=== PATIENT | female | born 1990 | race Caucasian/White ===

== ENCOUNTER 2016-10-18 13:58 | Emergency (ER) | payer MEDICAID ==
[~2016-10-18] VITALS: Ht 152.4 cm; Wt 40.7 kg
[2016-10-18 14:07] VITALS: BP 111/61
[2016-10-18] MEDS ORDERED: OXYcodone/APAP 5/325MG TABLET ONE (14:38)
[2016-10-18] MEDS ORDERED: OXYcodone/APAP 5/325MG TABLET PO ONE (15:00)
== END 2016-10-18 15:37 | disposition home or self-care (01) ==
LOC: ED 15:04
DX: S83.92XA Sprain of unspecified site of left knee, initial encounter (principal); F17.200 Nicotine dependence, unspecified, uncomplicated; X58.XXXA Exposure to other specified factors, initial encounter; Y93.89 Activity, other specified; Y92.89 Other specified places as the place of occurrence of the external cause; Y99.8 Other external cause status

== ENCOUNTER 2017-05-06 11:44 | Emergency (ER) | payer MEDICAID ==
[~2017-05-06] VITALS: Ht 152.4 cm; Wt 41.5 kg
[2017-05-06 11:53] VITALS: BP 124/77
== END 2017-05-06 14:03 | disposition home or self-care (01) ==
LOC: ED 13:57
DX: S83.91XA Sprain of unspecified site of right knee, initial encounter (principal); G89.11 Acute pain due to trauma; W11.XXXA Fall on and from ladder, initial encounter; Y93.89 Activity, other specified; Y92.89 Other specified places as the place of occurrence of the external cause; Y99.8 Other external cause status
CPT/HCPCS: 29505; 99284

== ENCOUNTER 2019-02-03 14:37 | Emergency (ER) | payer MEDICAID ==
[~2019-02-03] VITALS: Ht 157.5 cm; Wt 44.9 kg
[2019-02-03 14:48] VITALS: BP 126/85
== END 2019-02-03 15:40 | disposition home or self-care (01) ==
LOC: ED 15:34
DX: S83.412A Sprain of medial collateral ligament of left knee, initial encounter (principal); G89.29 Other chronic pain; F17.200 Nicotine dependence, unspecified, uncomplicated; X50.1XXA Overexertion from prolonged static or awkward postures, initial encounter; Y93.89 Activity, other specified; Y92.410 Unspecified street and highway as the place of occurrence of the external cause; Y99.8 Other external cause status
CPT/HCPCS: 29505; 99283